=== PATIENT | female | born 1975 | race Caucasian/White ===

== ENCOUNTER → 2017-05-11 | Outpatient (CLI) | payer OTHER ==
[~2017-05-11] VITALS: Ht 165.1 cm; Wt 92.0 kg
[~2017-05-11] MED LIST: ENDOCET 5-3251 EACH PO; IBUPROFEN800 MG PO; MOTRIN800 MG PO; PERCOCET 5/31 TABLET PO; PRENATAL TABLE1 EACH PO; TUMS500 MG PO
[2017-05-11 11:02] VITALS: BP 134/60
== END | disposition home or self-care (01) ==
LOC: IVINF 10:30
DX: Z31.82 Encounter for Rh incompatibility status (principal); Z3A.28 28 weeks gestation of pregnancy; Z67.91 Unspecified blood type, Rh negative
CPT/HCPCS: 96372; J2790

== ENCOUNTER 2017-07-11 07:44 | Inpatient (IN) | payer OTHER ==
[~2017-07-11] VITALS: Ht 167.6 cm; Wt 95.0 kg
[2017-07-11 08:19] VITALS: BP 128/73
[2017-07-11 08:37] LABS: BASOPHIL (%) 0.3 % (0-1); EOSINOPHIL (%) 0.8 % (0-5); EOSINOPHIL COUNT 0.1 K/uL (0-0.3); HEMATOCRIT 35.4 % (36.0-46.0); HEMOGLOBIN 11.9 G/DL (11.9-15.5); IMMATURE GRANULOCYTE (%) 0.8 % (0.0-0.7); LYMPHOCYTE (%) 28.6 % (15-42); LYMPHOCYTE COUNT 2.3 K/uL (1.0-2.8); MCHC 33.6 G/DL (30.0-36.0); MCV 92.2 FL (83-99); MONOCYTE (%) 10.7 % (3-12); MONOCYTE COUNT 0.8 K/uL (0-0.8); NEUTROPHIL (%) 58.8 % (45-76); NEUTROPHIL COUNT 4.6 K/uL (1.8-6.4); PLATELET COUNT 185 K/uL (156-360); RBC DIS.WIDTH-CV 13.8 % (11.8-14.6); RBC DIS.WIDTH-SD 45.7 % (39-53); RED BLOOD COUNT 3.84 M/uL (3.80-5.20); WHITE BLOOD COUNT 7.9 K/uL (4.1-10.2)
[2017-07-11 09:47] VITALS: BP 117/75
[2017-07-11 13:56] VITALS: BP 119/71
[2017-07-11] MEDS ORDERED: ENDOCET 5-3251 EACH PO (14:43)
[2017-07-11] MEDS ORDERED: IBUPROFEN800 MG PO (14:43)
[2017-07-11 16:09] VITALS: BP 109/66
[2017-07-11 17:51] VITALS: BP 122/75
[2017-07-11 22:53] VITALS: BP 116/57
[2017-07-12 03:48] VITALS: BP 110/60
[2017-07-12 06:49] LABS: BASOPHIL (%) 0.3 % (0-1); EOSINOPHIL (%) 1.6 % (0-5); EOSINOPHIL COUNT 0.2 K/uL (0-0.3); HEMATOCRIT 32.9 % (36.0-46.0); HEMOGLOBIN 10.8 G/DL (11.9-15.5); IMMATURE GRANULOCYTE (%) 0.7 % (0.0-0.7); LYMPHOCYTE (%) 14.3 % (15-42); LYMPHOCYTE COUNT 1.5 K/uL (1.0-2.8); MCH 30.8 PG (29.0-34.0); MCHC 32.8 G/DL (30.0-36.0); MCV 93.7 FL (83-99); MONOCYTE (%) 7.9 % (3-12); MONOCYTE COUNT 0.8 K/uL (0-0.8); NEUTROPHIL (%) 75.2 % (45-76); NEUTROPHIL COUNT 7.8 K/uL (1.8-6.4); PLATELET COUNT 173 K/uL (156-360); RBC DIS.WIDTH-CV 14.1 % (11.8-14.6); RBC DIS.WIDTH-SD 47.4 % (39-53); RED BLOOD COUNT 3.51 M/uL (3.80-5.20); WHITE BLOOD COUNT 10.4 K/uL (4.1-10.2)
[2017-07-12 07:34] VITALS: BP 121/74
[2017-07-12 13:29] VITALS: BP 132/67
[2017-07-12 15:10] VITALS: BP 132/69
[2017-07-12 21:30] VITALS: BP 121/64
[2017-07-13 07:55] VITALS: BP 114/56
[2017-07-13 13:00] VITALS: BP 127/67
[2017-07-13 22:46] VITALS: BP 129/62
[2017-07-14 07:47] VITALS: BP 128/84
[2017-07-14 16:00] VITALS: BP 130/83
[2017-07-15 08:15] VITALS: BP 136/78
== END 2017-07-15 14:20 | disposition home or self-care (01) | DRG 766 ==
LOC: 2WEST 07:44 → 2SOUTH 08:56 → 2WEST 07-15 14:20
PROVIDERS: Obstetrics & Gynecology Obstetrics
PROC: 10D00Z1 Extraction of Products of Conception, Low, Open Approach (ICD-10-PCS; principal; 2017-07-11)
DX: O34.211 Maternal care for low transverse scar from previous cesarean delivery (principal); Z37.0 Single live birth; Z3A.37 37 weeks gestation of pregnancy; K66.0 Peritoneal adhesions (postprocedural) (postinfection); O12.04 Gestational edema, complicating childbirth; O87.4 Varicose veins of lower extremity in the puerperium
CPT/HCPCS: 85025; 86850; 86870; 86900; 86901; 86905; 86920; 93971; J0131; J0690; J1885; J2274; J2405; J2590; J3010; J7120